=== PATIENT | female | born 1980 | race Caucasian/White ===

== ENCOUNTER → 2017-06-06 | Outpatient (CLI) | payer OTHER ==
--- NOTE | 2017-06-06 13:05 | DIREP ---
PROCEDURE:US PELVIC FOLLOWED BY TRANSVAGINAL COMPARISON:None. INDICATIONS:LT OV MASS, PCOS, PELVIC & PERINEAL PAIN TECHNIQUE:Pelvic ultrasound using transabdominal technique. Endovaginal images were also obtained for better assessment of the uterus and adnexal structures. Findings are summarized. FINDINGS: UTERUS:The uterus measures approximately 7.6 x 4.2 x 5.6 cm. No definite fibroids. Endometrial complex measures up to approximately 10 mm thickness. There is apparent fluid and echogenic debris within the endometrial cavity which may reflect blood products. Suspect tiny cervical nabothian cysts. RIGHT OVARY:The right ovary measures approximately 2.3 x 5.1 x 2.3 cm and appears relatively featureless. LEFT OVARY:The left ovary measures approximately 5.5 x 5.4 x 4.6 cm. This appears somewhat heterogenous with an apparent complex fluid component along the peripheral aspect of the left ovary measuring roughly 2.5 cm in greatest dimension. This may reflect a potential hemorrhagic cyst. There is an additional more solid component measuring up to approximately 4.0 cm which is poorly delineated. CUL-DE-SAC:Trace free fluid within the pelvis may be physiologic. CONCLUSION: 1. Unremarkable uterus. Apparent mild fluid and debris within the endometrial cavity which may reflect blood products. Please correlate with the phase of the patient's menstrual cycle. 2. Prominent ovaries bilaterally. The right ovary appears relatively featureless. The left ovary is somewhat heterogenous with apparent complex fluid and solid components as discussed above. The fluid component may reflect a hemorrhagic cyst. The solid component is poorly delineated by ultrasound. At a minimum suggest follow-up ultrasound in approximately 3-4 months to assess stability/resolution. If findings persist, further evaluation with pelvic MRI may be of benefit. 3. Trace free fluid within the pelvis may be physiologic. Dictated by: WILLIS Physician on 06/06/2017 at 11:55 AM
== END | disposition home or self-care (01) ==
LOC: RAD 09:46
DX: N83.202 Unspecified ovarian cyst, left side (principal)
CPT/HCPCS: 76830; 76856